=== PATIENT | male | born 1945 | race Caucasian/White ===

== ENCOUNTER → 2021-08-31 13:57 | Outpatient (CLI) | payer MEDICARE, OTHER, SELFPAY ==
[2021-08-31 15:11] LABS: COVID19 -Nasal RAPID Negative (Negative)
== END ==
PROVIDERS: Family Provider Internal Medicine; PCP Internal Medicine; Visit Provider Family Medicine Sleep Medicine
DX: Z20.822 Contact with and (suspected) exposure to COVID-19 (principal)
CPT/HCPCS: 87635; C9803

== ENCOUNTER 2021-09-03 06:47 | Day surgery (SDC) | payer MEDICARE, OTHER, SELFPAY ==
[2021-09-03] VITALS (9 sets, daily range): BP systolic 125–173; BP diastolic 72–91; PULSE 53–73; RESP 12–18; TEMP 36–36.2; O2SAT 96–99; BMI 28.5
--- NOTE | 2021-09-03 | PATH_ITS ---
[facility] Accession Number: [id number] . 01 Material submitted: . PART A: stomach - ANTRUM BIOPSY PART B: colon - TRANSVERSE COLON POLYP X3 PART C: colon - DESCENDING COLON POLYP . 02 Diagnosis: A. Antrum, Biopsy: Portions of gastric antral mucosa with focal features of reactive gastropathy and mild chronic inflammation. Negative for Helicobacter organisms by immunohistochemistry. Negative for intestinal metaplasia. Negative for dysplasia or malignancy. . B. Transverse Colon Polyp x3: Portions of tubular adenoma x3. . C. Descending Colon Polyp: Portion of tubular adenoma x1. Portion of hyperplastic polyp x1. MRV 09/06/2021 1156 Local . 02 Electronically signed: . Guerline Mccollum MD, Pathologist NPI- [id number] . 01 Gross description: . Part A: ANTRUM BIOPSY: Received in formalin are 4 fragment(s) of [place], soft tissue measuring 0.2 x 0.2 x 0.1 cm to 0.1 x 0.1 x 0.1 cm submitted entirely in 1 cassette(s) Part B: TRANSVERSE COLON POLYP X3: Received in formalin are 3 fragment(s) of [place], soft tissue measuring 0.1 x 0.1 x 0.1 cm to 0.1 x 0.1 x 0.1 cm submitted entirely in 1 cassette(s) Part C: DESCENDING COLON POLYP: Received in formalin are 2 fragment(s) of [place], soft tissue measuring 0.6 x 0.3 x 0.1 cm to 0.1 x 0.1 x 0.1 cm submitted entirely in 1 cassette(s) /CPE 09/04/2021 1123 Local . 02 Microscopic: . A. An immunohistochemical stain was performed to evaluate for Helicobacter organisms and is negative. The control stain showed appropriate reactivity. . * This test was developed and its performance characteristics determined by [facility]. It has not been cleared or approved by the U.S. Food and Drug Administration. The FDA has determined that such clearance or approval is not necessary. This test is used for clinical purposes. It should not be regarded as investigational or for research. . 02 Pathologist provided ICD-10: R19.01, R63.4, R13.10, R11.2, K63.5 . 02 CPT . 334324, 366984, 577661, [id number] Specimen Comment: A courtesy copy of this report has been sent to [facility] Performed at: 01 [facility] [address] [facility] [address], [place], [place] [id number] MD Jeremy Andersen MD Phone: [phone] Performed at: 02 [facility] [address] [place], [place] [id number] MD Sujey Palafox MD Phone: [phone]
[2021-09-03] MEDS: SODIUM CHLORIDE 0.9% 1,000 ML 84 ML IV (07:29)
--- NOTE | 2021-09-03 08:02 | PM.HP.1 ---
History of Present Illness History of Present Illness Date Patient Seen: 09/03/21 Time Patient Seen: 08:02 Chief complaint: SDC Narrative: I reviewed my note from August 14. No changes. Patient History Medical History Kidney cysts Kidney stones Liver cyst Surgical History H/O inguinal hernia repair History of appendectomy History of total hip arthroplasty Family & Social History Social History: household members spouse Tobacco & Substance use: Smoking Status Former smoker alcohol intake former Substance Use Type does not use Meds Home Medications and Allergies Home Medications Medication Instructions Recorded Confirmed Type losartan 100 mg tablet (Cozaar) 100 mg PO QDAY #0 07/29/17 09/03/21 History amlodipine 09/03/21 History atenolol 09/03/21 History hydrochlorothiazide 25 mg tablet 25 mg PO DAILY 09/03/21 09/03/21 History Allergies Allergy/AdvReac Type Severity Reaction Status Date / Time No Known Drug Allergies Allergy Verified 09/03/21 07:30 Review of Systems Review of Systems ROS: Yes All systems reviewed with the patient and are negative except as otherwise documented Exam Vital Signs (past 8 hours): - 09/03/21 07:21 Temperature 97.2 F L Pulse Rate 73 Respiratory Rate 18 Blood Pressure 173/91 H Pulse Oximetry 99 Oxygen Delivery Method Room Air Const General: cooperative and comfortable Orientation: alert HENAZ Head: normocephalic Ears: external ears normal Nose: external nose normal Face and sinus: normal facial exam Eyes General: appearance normal, both eyes and all related structures Neck Neck: normal visual inspection Chest Chest: normal inspection of the chest Resp Effort & Inspection: normal respiratory effort Cardio Rate: regular rate GI Inspection: normal to inspection Skin General: no rashes or lesions noted and No jaundice Neuro General: patient alert and moves all extremities Cognition: normal cognition Speech: speech normal Extrem General: no pedal edema Psych Appearance: grossly normal Assessment & Plan Assessment & Plan narrative: 76-year-old with nausea and weight loss. EGD and colonoscopy are pursued today. Time Spent With Patient Critical Care time: I spent a total of [] minutes of critical care time on this patient's care today; this time is exclusive of procedural time.
--- NOTE | 2021-09-03 08:05 | PM.PREOP ---
Pre-operative Note COVID-19 COVID-19 status: Negative Result date/Date tested (Pos, Neg/Pending): 08/31/21 Criteria for continued procedure: Possibility delay results in more complex future surgery or treatment Interval Note History & Physical reviewed/Exam performed by Physician: Yes Changes to H&P: No ASA Class (for procedural sedation): II
--- NOTE | 2021-09-03 08:45 | P.OP.EGD&C_ITS ---
Operative Date/Time/Diagnoses Date of procedure: 09/03/21 Time of procedure: 08:45 Pre-op diagnosis: Nausea weight loss colon cancer screening Post-op diagnosis: same Procedure & Clinicians Study performed: EGD with biopsies and colonoscopy with hot snare polypectomy and cold forceps polypectomies Same procedure as scheduled: Yes Indications: Nausea weight loss colon cancer screening Surgeon: Jose Harrell Procedure Notes SCOAP/Timeout: Done Procedure in detail: After the risks and benefits were explained, written and verbal informed consent was obtained. The patient was brought into the procedure room and placed into the left lateral decubitus position. Please see nurse locks tender notes for sedation details. The scope was introduced into the mouth through the bite block and advanced under direct visualization to the 2nd portion of the duodenum. The scope was slowly withdrawn carefully examining the mucosa for any defects or lesions. Retroflexed views were accomplished in the stomach. The stomach was decompressed, the scope was then removed from the patient who tolerated the procedure well. The patient was then turned around digital rectal examination accomplished no significant pathology appreciated. The scope was introduced into the rectum and advanced to the cecum as identified by the appendiceal orifice and ileocecal valve. The scope was introduced to the terminal ileum the scope was then slowly withdrawn to carefully examine the mucosa for any defects or lesions. Multiple direct views were made through the dentate line for exclusion of pathology the colon was decompressed scope removed the patient tolerated the procedure well. Adult colonoscope Bowel prep adequate Scope withdrawal time: 18 minutes Sedation minutes: 35 Complications: none Impression: 1. Duodenum: this is visually normal from the bulb through the 2nd portion. 2. Stomach: Mild erythema noted in the antrum biopsies were therefore taken for exclusion of Helicobacter or other pathology. No ulcers no outlet obstruction no mass lesions and retroflexed views of the LES were unremarkable. 3. Esophagus: The squamocolumnar junction correlated with the top of the gastric folds. GE junction was at 40 cm from the incisors. Patient had subtle LA grade a erosive esophagitis. No additional esophageal pathology throughout. 4. Terminal ileum: This was normal in appearance. 5. Colon: There was some scant diverticulosis in the left colon. In the transverse there were 3 small polyps removed. Two of these came by way of cold forceps and a 3rd polyp of approximately 5 mm with a brief application of hot snare. A 4th polyp in the descending colon measuring perhaps 7 mm in greatest dimension was removed with hot snare. Endoscopic diagnosis 1. LA grade a erosive esophagitis 2. Mild gastropathy 3. Colon polyps 4. Diverticulosis Post-procedure Plan for aftercare: 1. Await histopathology 2. If all of these polyps are returned adenomatous, repeat colonoscopy will be suggested for 3 years. 3. Should there be any recurrent symptoms of nausea, HIDA scan would be indicated. 4. Follow up GI clinic Disposition: PACU
--- NOTE | 2021-09-03 09:36 | SUR.PHASEII ---
Rhea Champion RN spoke with patient prior to transfer - He states that the string is not visable. Patient knows to call Dr. Sotomayor for follow up. Pt denies pain/nausea. Anxious to go home and eat.
--- NOTE | 2021-09-03 10:20 | SUR.PHASEII ---
Pt up and dressed independently, denies pain and SOB/dizziness. Discharge instructions were discussed and pt verbalized understanding.
--- NOTE | 2021-09-03 10:26 | SUR.PHASEII ---
All nursing care performed and charted by Abby CHRISTOPHER supervised by Mera Aleman RN
== END 2021-09-03 09:45 | disposition home or self-care (01) ==
PROVIDERS: Family Provider Internal Medicine; PCP Internal Medicine; Referring Provider Internal Medicine Gastroenterology; Visit Provider Internal Medicine Gastroenterology
PROC: 0DJ08ZZ Inspection of Upper Intestinal Tract, Via Natural or Artificial Opening Endoscopic (ICD-10-PCS; CPT 43235; principal; 2021-09-03 08:00)
PROC: 0DJD8ZZ Inspection of Lower Intestinal Tract, Via Natural or Artificial Opening Endoscopic (ICD-10-PCS; CPT 45378; 2021-09-03 08:00)
DX: K29.50 Unspecified chronic gastritis without bleeding (principal); K20.80 Other esophagitis without bleeding; K57.30 Diverticulosis of large intestine without perforation or abscess without bleeding; K31.9 Disease of stomach and duodenum, unspecified; D12.3 Benign neoplasm of transverse colon; D12.4 Benign neoplasm of descending colon
CPT/HCPCS: 45385; 43239; 45380; J2704; J3010

== ENCOUNTER 2024-08-09 06:49 | Day surgery (SDC) | payer MEDICARE, SELFPAY ==
--- NOTE | 2024-08-09 | PATH_ITS ---
[facility] Accession Number: [id number] No. of containers..06 Tissue . 01 Material submitted: . PART A: gastrointestinal site - ANTRUM PART B: esophagus, E-G Junction - GE JUNCTION PART C: colon - CECAL POLYP PART D: colon - ASCENDING POLYP PART E: colon - TRANSVERSE POLYP PART F: colon - SIGMOID POLYP . 01 Diagnosis: Part A: ANTRUM: Gastric mucosa with no diagnostic alterations. No Helicobacter organisms identified on H/E stain. No intestinal metaplasia, dysplasia, or malignancy identified. . Part B: GE JUNCTION: Squamous mucosa with no diagnostic alterations. Eosinophils are not increased. . Part C: CECAL POLYP: Colonic mucosa with benign lymphoid aggregate. No neoplasm identified. . Part D: ASCENDING POLYP: Tubular adenoma. . Part E: TRANSVERSE POLYP: Tubular adenoma. . Part F: SIGMOID POLYP: Tubular adenoma. [facility] 08/10/2024 [facility] Local . 01 Electronically signed: . Jeremy Andersen MD, Pathologist NPI- [id number] . 01 Gross description: . Part A: ANTRUM: Received in formalin is 1 fragment(s) of orte[place], soft tissue measuring 0.4 x 0.3 x 0.2 cm submitted entirely in 1 cassette(s) . Part B: GE JUNCTION: Received in formalin is 1 fragment(s) of [place]te[place], soft tissue measuring 0.2 x 0.2 x 0.2 cm submitted entirely in 1 cassette(s) . Part C: CECAL POLYP: Received in formalin is 1 fragment(s) of [place], soft tissue measuring 0.7 x 0.6 x 0.1 cm submitted entirely in 1 cassette(s) . Part D: ASCENDING POLYP: Received in formalin is 1 fragment(s) of [place], soft tissue measuring 0.2 x 0.2 x 0.1 cm submitted entirely in 1 cassette(s) . Part E: TRANSVERSE POLYP: Received in formalin are multiple fragment(s) of [place], soft tissue measuring 0.1 x 0.1 x 0.1 cm to 1.2 x 0.4 x 0.3 cm submitted entirely in 1 cassette(s) . Part F: SIGMOID POLYP: Received in formalin is 1 fragment(s) of [place]te[place], soft tissue measuring 0.3 x 0.3 x 0.3 cm submitted entirely in 1 cassette(s) /NIGHAT 08/10/2024 1857 Local . 01 Pathologist provided ICD-10: D12.2, D12.3, D12.5, K63.89 . 01 CPT . 028574, 300855, 319839, 827771, 130193, 088897 Specimen Comment: A courtesy copy of this report has been sent to [facility] Performed at: [address] [address], [place], [place] [id number] MD Jeremy Andersen MD Phone: [phone]
[2024-08-09 08:54] VITALS: BP 141/76; PULSE 57; RESP 16; TEMP 36.6; O2SAT 96
[2024-08-09] MEDS: SODIUM CHLORIDE 0.9% 1,000 ML 150 ML IV (09:01)
--- NOTE | 2024-08-09 09:32 | PM.PREOP ---
Pre-operative Note COVID-19 COVID-19 status: Not tested Interval Note History & Physical reviewed/Exam performed by Physician: Yes Changes to H&P: No
--- NOTE | 2024-08-09 09:50 | SUR.OPER ---
EGD SCOPE # [id number] COLONOSCOPY # [id number] REBECCA
--- NOTE | 2024-08-09 10:14 | PM.OP.EC ---
Operative Date/Time/Diagnoses Date of procedure: 08/09/24 Time of procedure: 10:14 Pre-op diagnosis: 1. GERD 2. Personal history of polyps Post-op diagnosis: same Procedure & Clinicians Study performed: 1. EGD with biopsy 2. Colonoscopy with cold snare polypectomy of polyps x4 Same procedure as scheduled: Yes Indications: Reflux symptoms, polyps Surgeon: Oscar Estrada Procedure Notes SCOAP/Timeout: Performed Procedure in detail: Time-out was performed. Mac was induced. Patient was placed in left lateral decubitus position. Bite block was placed. Gastroscope was inserted into the 2nd portion of the duodenal. The duodenal appeared normal. There was linear erosions of the antrum. Biopsies of the antrum were taken with cold forceps. Retroflexed view showed a very small hiatal hernia. Remainder of the stomach appeared normal. GE junction was noted at 40 cm with a regular Z-line but some erythema of the distal esophagus. Biopsies were performed with cold forceps. Gastroscope was removed. The perineum was inspected without any gross abnormality. Lubricated pediatric colonoscope was inserted and advanced to the cecum. The terminal ileum was intubated. The colonoscope was withdrawn slowly inspecting the circumference of the colon. Small, adenomatous appearing polyps were noted and removed in the cecum, ascending colon, transverse colon and sigmoid, completely removed with cold snare polypectomy and retrieved. Very small polyps may have been missed, prep quality was adequate. Retroflexed view of the rectum showed small, non prolapsed nonbleeding internal hemorrhoids. The scope was withdrawn the patient was taken to PACU in good condition. Scope withdrawal time: 8 Sedation minutes: 22 Findings: gastritis, internal hemorrhoids and polyp Specimen(s): other (1. Antral biopsy2. GE junction biopsy3. Cecal polyp4. Ascending polyp5. Transverse polyp6. Sigmoid polyp) Complications: none Impression: Gastritis, polyps Post-procedure Recommendations: Colonscopy in 3 years Follow up: as needed Disposition: PACU
[2024-08-09 10:16] VITALS: BP 123/73; PULSE 78; RESP 14; TEMP 36.3; O2SAT 94
[2024-08-09 10:25] VITALS: BP 111/69; PULSE 78; RESP 14; O2SAT 96
[2024-08-09 10:27] VITALS: BP 130/83; PULSE 79; RESP 17; O2SAT 97
== END 2024-08-09 10:49 | disposition home or self-care (01) ==
PROVIDERS: Family Provider Internal Medicine; PCP Internal Medicine; Referring Provider Surgery; Visit Provider Surgery
PROC: 0DJ08ZZ Inspection of Upper Intestinal Tract, Via Natural or Artificial Opening Endoscopic (ICD-10-PCS; CPT 45385; principal; 2024-08-09 09:15)
PROC: 0DJD8ZZ Inspection of Lower Intestinal Tract, Via Natural or Artificial Opening Endoscopic (ICD-10-PCS; CPT 45378; 2024-08-09 09:15)
DX: Z12.11 Encounter for screening for malignant neoplasm of colon (principal); D12.2 Benign neoplasm of ascending colon; D12.3 Benign neoplasm of transverse colon; D12.5 Benign neoplasm of sigmoid colon; K64.8 Other hemorrhoids; K21.9 Gastro-esophageal reflux disease without esophagitis; K29.70 Gastritis, unspecified, without bleeding; Z86.0100 Personal history of colon polyps, unspecified; I10 Essential (primary) hypertension; Z87.891 Personal history of nicotine dependence
CPT/HCPCS: 45385; 43239; J2405; J2704